=== PATIENT | male | born 1945 | race Caucasian/White ===

== ENCOUNTER 2021-05-21 10:58 | Emergency (ER) | payer OTHER, MEDICARE ==
[~2021-05-21 10:58] MED LIST: AMARYL4 MG PO; ASPIRIN EC81 MG PO; BACTRIM DS TAB1 EAC1 PO; GABAPENTIN600 MG PO; GABAPENTIN800 MG PO; IRON18 MG PO; ISOSORBIDE DINI30 MG PO; LASIX20 MG PO; LASIX40 MG PO; LIPITOR40 MG PO; METOPROLOL TART25 MG PO; NEOSPORIN OIN14.2 GM TOP; NORVASC5 MG PO; PERCOCET 7.5/321 TAB PO; PRILOSEC OTC20 MG PO; VITAMIN C250 MG PO; VITAMIN D250 MCG PO; ZESTRIL2.5 MG PO
[2021-05-21 12:00] LABS: BASOPHIL 0.7 % (0-2); EOSINOPHIL 2.9 % (0-7); HCT 30.8 % (42.0-52.0); HGB 10.5 g/dl (13.2-18.0); LYMPHOCYTE 11.7 % (15-48); MCH 31.7 pg (25.0-31.0); MCHC 34.1 g/dL (32.0-36.0); MCV 93.1 fL (78.0-100.0); MONOCYTE 10.4 % (0-12); NEUTROPHIL 73.8 % (41-80); NRBC 0; PLT 153 K/uL (150-400); RBC 3.31 M/uL (4.70-6.00); RDW 13.2 % (11.5-14.0); WBC 8.1 K/uL (4.0-10.5)
[2021-05-21 12:09] LABS: ALBUMIN 3.5 g/dL (3.4-5.0); BILIRUBIN - TOTAL 1.6 mg/dL (0.2-1.0); CREATININE 1.79 mg/dL (0.67-1.17); GLOBULIN (CALCULATION) 3.4 g/dL; INR 1.78 (0.9-1.2); POTASSIUM 4.2 mmol/L (3.5-5.1); PROTHROMBIN TIME 19.9 SECONDS (11.8-13.4); PTT 35.8 SECONDS (24.4-34.7); TOTAL PROTEIN 6.9 g/dL (6.4-8.2)
== END 2021-05-21 13:27 | disposition other institution (70) ==
LOC: FER 10:58
PROVIDERS: Internal Medicine
DX: S06.6X9A Traumatic subarachnoid hemorrhage with loss of consciousness of unspecified duration, initial encounter (principal); S06.5X9A Traumatic subdural hemorrhage with loss of consciousness of unspecified duration, initial encounter; S01.01XA Laceration without foreign body of scalp, initial encounter; I10 Essential (primary) hypertension; E11.9 Type 2 diabetes mellitus without complications; Z79.01 Long term (current) use of anticoagulants; Z79.84 Long term (current) use of oral hypoglycemic drugs; W08.XXXA Fall from other furniture, initial encounter; Y92.009 Unspecified place in unspecified non-institutional (private) residence as the place of occurrence of the external cause
CPT/HCPCS: 36415; 70450; 80053; 85025; 85610; 85730

== ENCOUNTER 2022-02-09 04:02 | Emergency (ER) | payer OTHER, MEDICARE ==
[2022-02-09 04:49] LABS: BASOPHIL 0.5 % (0-2); EOSINOPHIL 1.5 % (0-7); HCT 31.8 % (42.0-52.0); HGB 11.1 g/dl (13.2-18.0); LYMPHOCYTE 11.3 % (15-48); MCH 32.6 pg (25.0-31.0); MCHC 34.9 g/dL (32.0-36.0); MCV 93.5 fL (78.0-100.0); MONOCYTE 6.5 % (0-12); MPV 10.4 fL (6.0-9.5); NEUTROPHIL 79.8 % (41-80); NRBC 0; PLT 112 K/uL (150-400)
[2022-02-09 04:58] LABS: INR 1.58 (0.9-1.2); PROTHROMBIN TIME 18.1 SECONDS (11.8-13.4)
[2022-02-09 05:08] LABS: ALBUMIN 3.6 g/dL (3.4-5.0); BILIRUBIN - TOTAL 2.3 mg/dL (0.2-1.0); BUN/CREAT RATIO (CALC) 16.4 RATIO; CREATININE 1.52 mg/dL (0.67-1.17); POTASSIUM 4.4 mmol/L (3.5-5.1); TOTAL PROTEIN 6.6 g/dL (6.4-8.2)
[2022-02-09 07:54] LABS: BILIRUBIN NEGATIVE (NEGATIVE); BLOOD TRACE-INTACT Ery/uL (NEGATIVE); CLARITY CLEAR (CLEAR); COLOR YELLOW (YELLOW); GLUCOSE (U) TRACE mg/dL (NORMAL); LEUKOCYTES NEGATIVE Leu/uL (NEGATIVE); NITRITE NEGATIVE (NEGATIVE); PROTEIN 1+ mg/dL (NEGATIVE); pH 6.5 (5.0-9.0)
== END 2022-02-09 15:53 | disposition other institution (70) ==
LOC: FER 04:02
PROVIDERS: Emergency Medicine
DX: G45.9 Transient cerebral ischemic attack, unspecified (principal); I10 Essential (primary) hypertension; E11.9 Type 2 diabetes mellitus without complications; Z88.8 Allergy status to other drugs, medicaments and biological substances; Z79.84 Long term (current) use of oral hypoglycemic drugs; Z20.822 Contact with and (suspected) exposure to COVID-19
CPT/HCPCS: 36415; 36600; 70450; 71045; 80053; 81001; 82140; 82803; 84484; 85025; 85610; 93005; U0002